=== PATIENT | female | born 1985 | race African-American/Black ===

== ENCOUNTER 2021-05-19 20:56 | Emergency (ER) | payer MEDICAID ==
[~2021-05-19] VITALS: Ht 162.6 cm; Wt 95.5 kg
[2021-05-19] MEDS ORDERED: ibuprofen 200mg tablet PO ONE (23:55)
[2021-05-20 01:00] VITALS: BP 134/98
== END 2021-05-20 00:49 | disposition home or self-care (01) ==
LOC: ER 20:56
DX: S86.812A Strain of other muscle(s) and tendon(s) at lower leg level, left leg, initial encounter (principal); M79.662 Pain in left lower leg; X58.XXXA Exposure to other specified factors, initial encounter; Y93.89 Activity, other specified; Y92.89 Other specified places as the place of occurrence of the external cause; Y99.8 Other external cause status
CPT/HCPCS: 99284